=== PATIENT | female | born 1960 | race Caucasian/White ===

== ENCOUNTER → 2016-06-26 | Outpatient (CLI) | payer OTHER ==
[~2016-06-26] MED LIST: LIDOCAINE 1%/EPI 1:100,000 50 ML, SODIUM BICARBONATE VIAL 5 MEQ in IV NORMAL SALINE 100... SQ ONE
--- NOTE | 2016-06-26 13:55 | CARD ---
APPROVED REPORT Patient StatusOUT-PATIENT Campaign Analyst: MATEUS WELLINGTON Procedure(s) performed: Endovenous radiofrequency ablation of the right greater saphenous vein. INDICATION FOR PROCEDURE The indication(s) include : Symptomatic Chronic Venous Insufficiency with Varicose Veins, lower extre mity pain and edema. PROCEDURE NARRATIVE The patient was transferred to the procedure suite and the insufficient saphenous vein was mapped by ultrasound and diagrammed on the underlying skin. The depth and diameter of the vein(s) to be treate d was documented. The varicose tributary veins and suitable access sites were identified and mapped as well. The patient was then positioned supine on the procedure table. The entire limb was sterile ly prepared and the lower extremity and treatment table were sterilely draped. The RF catheter was placed on the sterile field, flushed and wiped down, prepared, and connected by a sterile cable. The patient was placed in reverse-Trendelenburg position and local anesthesia was instilled in the sk in overlying the access site. A skin incision was made overlying the identified and mapped greater s aphenous vein entry site. The vein was punctured through the incision and using ultrasound guidance and the Seldinger technique a guide wire was introduced through the needle which was then exchanged o jennifer the guide wire for a 7 F sheath. The guide wire was removed and the sheath was flushed. The RF probe was placed into the vein through the sheath and positioned at a point just distal (about 0.5 to 1 cm) to the entrance point of the superficial epigastric artery using ultrasound guidance. After the RF probe position was verified by the ultrasound, tumescent anesthesia was infiltrated, und er ultrasound guidance, precisely into the perivenuus compartment along the entire length of vein fro m the entry site to the saphenofemoral junction until a "halo" of fluid was noted around the vein. The patient was then placed in Trendelenburg position. After the RF probe position was again confirm ed with ultrasound imaging, moderate external compression was applied over the RF heating element, an d RF energy was applied. The probe was withdrawn sequentially in 6.5 cm steps with slight overlap of 7 cm segments of ablation and monitored to keep the probe temperature at 120 degrees Celsius and the generator output well below its maximum power. Treatment Segments: 6 Total Length: 32.5 cm. To wilbur Ablation time: 2 minutes. Repeat ultrasound of the saphenous vein was performed confirming successful treatment. The catheter and sheath were withdrawn and hemostasis established with direct pressure. After assuring hemostasis , the skin incision over the saphenous vein was closed with a bandage and an external compression roopa ssing was applied from the level of the foot to the most proximal level of the thigh.
== END | disposition home or self-care (01) ==
LOC: VNUS 11:59
PROVIDERS: ATTEND Internal Medicine Cardiovascular Disease
DX: I87.2 Venous insufficiency (chronic) (peripheral) (principal); I83.899 Varicose veins of unspecified lower extremity with other complications
CPT/HCPCS: 36475; J3490; J7030

== ENCOUNTER → 2016-06-27 | Outpatient (CLI) | payer OTHER ==
--- NOTE | 2016-06-27 14:25 | RAD ---
APPROVED REPORT Right Lower Extremity Venous Study for DVT Patient Location: OUT-PATIENT Indications s/p rt gsv ablation Vein Imaging (Right) CFV (R): Compressible SFJ (R): Compressible FEM (R): Compressible POP (R): Compressible DFV (R): Compressible PTV (R): Spontaneous GSV (R): Absent Flow Peroneals (R): Spontaneous Doppler Evaluation (Right) CFV (R): Spontaneous POP (R):Spontaneous Findings No evidence of DVT in the right lower extremity deep veins. Normal spectral flow patterns and color d oppler noted. Previously ablated right GSV is noted. Critical Notification Critical Value: No <Conclusion> Negative for DVT in the RLE.
== END | disposition home or self-care (01) ==
LOC: US 07:48
PROVIDERS: ATTEND Internal Medicine Cardiovascular Disease
DX: I87.2 Venous insufficiency (chronic) (peripheral) (principal)
CPT/HCPCS: 93971